=== PATIENT | female | born 1980 | race Hispanic/Latino ===

== ENCOUNTER 2018-05-06 19:06 | Emergency (ER) | payer BC ==
[2018-05-06] MEDS ORDERED: Fluorescein Opthalmic Strip ONE (19:58)
[2018-05-06] MEDS ORDERED: Proparacaine 0.5% Opth 15 ML BOT ONE (19:58)
[2018-05-06] MEDS ORDERED: Ibuprofen 200 MG TAB ONE (20:24)
== END 2018-05-06 20:28 | disposition home or self-care (01) ==
LOC: ERS 19:06
DX: H57.12 Ocular pain, left eye (principal); F17.210 Nicotine dependence, cigarettes, uncomplicated
CPT/HCPCS: 99283